=== PATIENT | female | born 2000 | race Caucasian/White ===

== ENCOUNTER 2023-01-19 07:30 | Outpatient (CLI) | payer OTHER, SELFPAY ==
--- NOTE | ~2023-01-19 | MR_ITS ---
EXAMINATION: MR thoracic spine wo con DATE: 01/19/2023 08:27 INDICATION: Thoracic spine pain. TECHNIQUE: Magnetic resonance imaging (MRI) of the thoracic spine was performed without intravenous c ontrast. COMPARISON: Thoracic spine radiographs 01/06/2023 FINDINGS: There is 7 degrees levocurvature of upper thoracic spine. Vertebral body heights and interv ertebral disc heights are normal. There is multilevel mild facet joint osteoarthritis. No neural fora gaby stenosis or central canal stenosis. The spinal cord signal intensity is normal. The conus medul lisa is at L1. IMPRESSION: 1. Mild thoracic facet joint osteoarthritis. Reviewed, dictated and finalized at location A.
== END 2023-01-19 07:31 | disposition home or self-care (01) ==
PROVIDERS: Visit Provider Nurse Practitioner
DX: M54.6 Pain in thoracic spine (principal); M85.88 Other specified disorders of bone density and structure, other site
CPT/HCPCS: 72146